=== PATIENT | male | born 1940 | race Caucasian/White ===

== ENCOUNTER 2022-11-24 07:38 | Emergency (ER) | payer MEDICARE, BC | END 2022-11-24 11:50 | disposition home or self-care (01) | LOC: JD.ED 07:38 | DX: M25.511 Pain in right shoulder (principal) | CPT/HCPCS: 36415; 71045; 71045-26; 73030-26-RT; 73030-RT; 80053; 84484; 85025; 93005; 93010; 99283; 99284 ==

== ENCOUNTER 2025-02-10 01:35 | Emergency (ER) | payer MEDICARE, BC ==
[2025-02-10] MEDS: predniSONE 20 MG Tab PO ONE (02:19)
[2025-02-10] MEDS: Albuterol/Ipratropium 3.0-0.5 MG/3 ML Neb Soln NEB ONE (02:28)
[2025-02-10 02:37] LABS: BASOPHILS PERCENT AUTO 0.6 % (0.0-1.0); EOSINOPHILS ABSOLUTE AUTO 0.1 K/mm3 (0.0-0.4); EOSINOPHILS PERCENT AUTO 1.3 % (0.0-6.0); HEMATOCRIT 38.6 % (42.0-52.0); IMMATURE GRAN ABSOLUTE AUTO 0.01 K/mm3 (0.00-0.05); IMMATURE GRAN PERCENT AUTO 0.1 % (0.0-0.4); LYMPHOCYTES ABSOLUTE AUTO 0.8 K/mm3 (1.0-4.8); LYMPHOCYTES PERCENT AUTO 12.2 % (24.0-44.0); MEAN CORPUSCULAR HEMOGLOBIN 31.8 pg (28.0-32.0); MEAN CORPUSCULAR HGB CONC 33.7 g/dl (32.0-36.0); MEAN CORPUSCULAR VOLUME 94.4 fl (83.0-99.0); MEAN PLATELET VOLUME 8.9 fl (9.4-12.4); MONOCYTES ABSOLUTE AUTO 0.7 K/mm3 (0.0-0.8); NEUTROPHILS PERCENT AUTO 74.8 % (41.0-71.0); PLATELET COUNT,PLT 158 K/mm3 (150-400); RED BLOOD CELL COUNT 4.09 M/mm3 (4.52-5.90); WHITE BLOOD CELL COUNT,WBC 6.74 K/mm3 (3.9-11.3)
[2025-02-10] MEDS: Benzonatate 100 MG Cap PO ONE (02:54)
[2025-02-10 03:12] LABS: ALBUMIN 3.5 g/dl (3.4-5.0); ANION GAP 12.4 (5-15); BILIRUBIN TOTAL 0.8 mg/dL (0.2-1.0); CALCIUM 8.7 mg/dL (8.5-10.1); EST CRCL DRUG DOSING (CG) 55.76 mL/min; POTASSIUM,K 4.4 mEq/L (3.5-5.1); PROTEIN TOTAL,TP 7.2 g/dl (6.4-8.2)
== END 2025-02-10 04:33 | disposition home or self-care (01) ==
LOC: JD.ED 01:35
DX: J06.9 Acute upper respiratory infection, unspecified (principal); E87.1 Hypo-osmolality and hyponatremia; B97.89 Other viral agents as the cause of diseases classified elsewhere; Z79.899 Other long term (current) drug therapy; Z87.891 Personal history of nicotine dependence
CPT/HCPCS: 36415; 71045; 80053; 83880; 85025; 93005; 94640; 99284; A9270; J7512; 93010; 99283

== ENCOUNTER 2025-02-10 19:16 | Emergency (ER) | payer MEDICARE, BC ==
[2025-02-10] MEDS: Acetaminophen 325 MG Tab PO ONE (19:52)
[2025-02-10] MEDS: Albuterol/Ipratropium 3.0-0.5 MG/3 ML Neb Soln NEB ONE (20:04)
[2025-02-10] MEDS: cefTRIAXone 2 GM, Lidocaine 1% 4.2 ML IM ONE (20:24)
== END 2025-02-10 20:41 | disposition home or self-care (01) ==
LOC: JD.ED 19:16
DX: R06.89 Other abnormalities of breathing (principal); J06.9 Acute upper respiratory infection, unspecified; B97.89 Other viral agents as the cause of diseases classified elsewhere; Z79.899 Other long term (current) drug therapy
CPT/HCPCS: 94640; 96372; 99284; A9270; J0696; J2003; 99283